=== PATIENT | female | born 1985 | race Caucasian/White ===

== ENCOUNTER 2022-06-21 08:02 | Emergency (ER) | payer OTHER ==
[~2022-06-21] VITALS: Ht 167.6 cm; Wt 104.5 kg
[2022-06-21 10:45] VITALS: BP 124/84
== END 2022-06-21 11:12 | disposition home or self-care (01) ==
LOC: EMS 08:09
DX: M25.562 Pain in left knee (principal); Z88.8 Allergy status to other drugs, medicaments and biological substances
CPT/HCPCS: 99283